=== PATIENT | female | born 1940 | race Caucasian/White ===

== ENCOUNTER 2021-06-26 21:19 | Inpatient (IN) | payer MEDICARE ==
[~2021-06-26] VITALS: Ht 162.6 cm; Wt 49.9 kg
[2021-06-26] MEDS ORDERED: NALOXONE 0.4 MG/ML, 1ML ONE (21:55)
[2021-06-26] MEDS ORDERED: NALOXONE 0.4 MG/ML, 1ML IVPush ONE (22:00)
[2021-06-26] MEDS ORDERED: PLEASE ENTER ALLERGIES MC SCH (22:00)
[2021-06-26] MEDS ORDERED: PLEASE ENTER HEIGHT AND WEIGHT MC SCH (22:00)
--- NOTE | 2021-06-26 22:10 | NUR ---
IV PLACED AND MEDICATED PER DEC. PT RESPONSED TO PAINFUL STIMULI DURING IV INSERTION SAID A FEW WORDS.
[2021-06-26 22:42] LABS: BASOPHILS % (AUTO) 1 % (0-1); EOSINOPHILS % (AUTO) 1 % (1-7); LYMPHOCYTES % (AUTO) 10 % (22-44); MEAN CORPUSCULAR HEMOGLOBIN 28.7 pg (27.0-34.8); MEAN CORPUSCULAR HGB CONC 33.8 g/dL (32.4-35.8); MEAN PLATELET VOLUME 9.3 fL (7.4-10.4); MONOCYTES % (AUTO) 5 % (2-9); NEUTROPHILS % (AUTO) 84 % (42-75); PLATELET COUNT 152 x10^3/uL (130-400); RED BLOOD COUNT 3.89 x10^6/uL (3.82-5.3); RED CELL DISTRIBUTION WIDTH 18.5 % (9.6-15.2)
[2021-06-26 22:49] LABS: INTERNATIONAL NORMALIZED RATIO 1.17 (0.93-1.1); PROTHROMBIN TIME 12.4 Seconds (9.6-11.5)
[2021-06-26 22:51] LABS: ALANINE AMINOTRANSFERASE 17 U/L (12-78); ALBUMIN 3.5 g/dL (3.4-5.0); ANION GAP 10 mmol/L (5-15); CALCIUM 8.4 mg/dL (8.5-10.1); CHLORIDE 92 mmol/L (98-107)
[2021-06-26 22:56] LABS: ALKALINE PHOSPHATASE 76 U/L (45-117); BILIRUBIN,TOTAL 0.9 mg/dL (0.2-1.0); CREATININE 0.57 mg/dL (0.55-1.02); TOTAL PROTEIN 7.5 g/dL (6.4-8.2); TROPONIN I < 0.015 ng/mL (0.000-0.045)
[2021-06-26] MEDS ORDERED: SODIUM CHLORIDE FLUSH 10ML SYR IVF ONE (23:00)
[2021-06-26] MEDS ORDERED: [UNRECOGNIZED DRUG - OTHER] IV ONE (23:00)
[2021-06-26] MEDS ORDERED: HUM PROTHROMBIN CPLX IV ONE (23:00)
--- NOTE | 2021-06-26 23:02 | NUR ---
BEDSIDE REPORT TO LIN JACKSON.
[2021-06-26 23:03] LABS: SALICYLATE LEVEL < 1.7 mg/dL (2.8-20.0)
[2021-06-26 23:06] LABS: OVALOCYTES 1+; POLYCHROMASIA 1+; TEAR DROPS 1+
--- NOTE | 2021-06-26 23:06 | NUR ---
BEDSIDE REPORT RECEIVED FROM KATHE JACKSON
[2021-06-26 23:07] LABS: <PLATELET ESTIMATE> ADEQUATE; <PLT MORPHOLOGY> NORMAL PLT MORPH
--- NOTE | 2021-06-26 23:10 | NUR ---
PT SUPINE ON HENRY MONROY, VSS. PT REQUESTING SOCKS, PROVIDED. DENIES ANY ADDITIONAL NEEDS AT THIS TIME. CALL LIGHT AND PERSONAL BELONGINGS WITHIN REACH. FAMILY REMAINS AT BEDSIDE.
--- NOTE | 2021-06-27 00:48 | NUR ---
Pt to be admitted to [facility], room 431. Report called to [facility].
[2021-06-27 01:30] VITALS: BP 136/73
[2021-06-27 01:38] VITALS: BP 136/73
[2021-06-27] MEDS ORDERED: ONDANSETRON 2MG/ML, 2ML IVPush PRN (03:00)
[2021-06-27] MEDS ORDERED: MORPHINE SULFATE 4 MG/ML, 1ML IVPush PRN (03:00)
[2021-06-27 08:30] VITALS: BP 124/66
[2021-06-27] MEDS ORDERED: SODIUM CHLORIDE FLUSH 10ML SYR IVF SCH (09:00)
== END 2021-06-27 16:30 | disposition hospice, home (50) | DRG 64 ==
LOC: ED 22:47 → EDIP 23:55 → 4NW 06-27 01:04
PROVIDERS: ADMIT Internal Medicine; ATTEND Internal Medicine
DX: I62.9 Nontraumatic intracranial hemorrhage, unspecified (principal); G93.41 Metabolic encephalopathy; G93.5 Compression of brain; I48.20 Chronic atrial fibrillation, unspecified; D68.59 Other primary thrombophilia; E87.1 Hypo-osmolality and hyponatremia; R40.20 Unspecified coma; D46.9 Myelodysplastic syndrome, unspecified; Z51.5 Encounter for palliative care; Z66 Do not resuscitate; Z79.01 Long term (current) use of anticoagulants; Z82.3 Family history of stroke; Z79.899 Other long term (current) drug therapy
CPT/HCPCS: 36415; 70450; 71045; 80053; 80299; 80320; 80329; 82140; 83605; 84484; 85025; 85610; 96374; 99285; J2310; C9132; G0480